=== PATIENT | female | born 1965 | race African-American/Black ===

== ENCOUNTER 2022-07-23 19:55 | Emergency (ER) | payer OTHER ==
[2022-07-23 20:03] VITALS: RESP 20; TEMP 98.2; BMI 23.3
[2022-07-23] MEDS ORDERED: ASPIRIN 81 MG CHEWABLE TABLETS PO ONE (21:08)
[2022-07-23] MEDS ORDERED: ASPIRIN 81 MG CHEWABLE TABLETS ONE (21:13)
[2022-07-23 21:36] LABS: BASO % 1.2 % (0-2.0); EOS % 3.7 % (0-4.5); HEMATOCRIT 38.5 % (32.4-45.2); HEMOGLOBIN 12.2 GM/dL (10.7-15.3); LYMPH % 45.3 % (8-40); MCH 22.4 pg (25.7-33.7); MCHC 31.6 g/dl (32.0-36.0); MEAN CELL VOLUME 70.8 fl (80-96); MEAN PLT VOLUME 10.2 fl (7.5-11.1); MONO % 6.9 % (3.8-10.2); NEUT % 42.9 % (42.8-82.8); PLATELET COUNT 230 10^3/uL (134-434); RBC 5.44 M/mm3 (3.60-5.2); RDW 15.8 % (11.6-15.6); WHITE BLOOD COUNT 5.4 K/mm3 (4.0-10.0)
[2022-07-23 21:52] LABS: CALCIUM 9.6 mg/dL (8.5-10.1)
[2022-07-23 21:53] LABS: ALBUMIN 4.1 g/dl (3.4-5.0); BLOOD UREA NITROGEN 21.3 mg/dL (7-18)
[2022-07-23 21:56] LABS: CREATININE 0.9 mg/dL (0.55-1.3)
[2022-07-23 21:57] LABS: BILIRUBIN,TOTAL 0.7 mg/dL (0.2-1)
[2022-07-23 21:58] LABS: TOT PROT 7.2 g/dl (6.4-8.2)
[2022-07-23 23:03] VITALS: BP 138/94; PULSE 70
== END 2022-07-23 23:44 | disposition left against medical advice (07) ==
LOC: JER 19:55
DX: R07.9 Chest pain, unspecified (principal)
CPT/HCPCS: 36415; 71045-TC-FY; 80053; 84484; 85025; 93005; 93010; 99285-25